=== PATIENT | female | born 1945 | race Caucasian/White ===

== ENCOUNTER 2020-06-02 16:37 | Inpatient (IN) | payer MEDICARE ==
[2020-06-02] MEDS ORDERED: traMADol HCl 50 MG TAB PO PRN (18:27)
[2020-06-02] MEDS ORDERED: Cyclobenzaprine 10 MG TAB PO PRN (18:27)
[2020-06-02] MEDS ORDERED: Morphine 2 MG/ML VIAL SLOW IVP PRN (18:28)
[2020-06-02 18:40] VITALS: BMI 53.1
[2020-06-02] MEDS ORDERED: traMADol HCl 50 MG TAB PO SCH (18:45)
[2020-06-02] MEDS ORDERED: Acetaminophen 500 MG TAB PO SCH (18:45)
[2020-06-02] MEDS ORDERED: Dextrose 50% Abboject 50 ML SYRINGE SLOW IVP PRN (20:13)
[2020-06-02] MEDS ORDERED: Ondansetron PF 4 MG/2 ML Vial IVP PRN (20:13)
[2020-06-02] MEDS ORDERED: Dextrose 5% in Water 1,000 ML IV PRN (20:13)
[2020-06-02] MEDS ORDERED: hydrALAZINE 20 MG/ML VIAL SLOW IVP PRN (20:13)
[2020-06-02] MEDS: Famotidine 20 MG TAB PO SCH (21:50)
[2020-06-02] MEDS: Senokot S 8.6-50 MG TAB PO SCH (21:52)
[2020-06-03] MEDS: Acetaminophen 500 MG TAB PO SCH ×5 (00:10→23:09)
[2020-06-03] MEDS: traMADol HCl 50 MG TAB PO SCH ×5 (00:10→23:10)
--- NOTE | 2020-06-03 00:11 | HP ---
The patient was transferred from [facility]. TRAUMA SURGEON: Dr. Jacobson. CONSULTING PHYSICIAN: Dr. Goldman. HISTORY OF PRESENT ILLNESS: The patient is a 74-year-old female, who presented to the emergency department via EMS after mechanical fall at home. The patient has a history of cerebral palsy and uses a walker to get around. She reports moving around her home before she was able to sit down on her chair in the living room. She fell onto her left side. She reports immediate pain. EMS brought the patient to the hospital and she was found to have a left intertrochanteric femur fracture. She was transferred here as a direct admit from the [facility]. Upon my evaluation, the patient denied numbness and tingling in her bilateral upper and lower extremities, back pain, nausea, vomiting, diarrhea, chest pain, shortness of breath, and cough. She denies loss of consciousness or anticoagulation use. REVIEW OF SYSTEMS: All additional 10-point review of systems negative except as indicated above. PAST MEDICAL HISTORY: Cerebral palsy, hypertension, and hyperlipidemia. PAST SURGICAL HISTORY: Left ankle surgery as a child, cholecystectomy, hysterectomy. SOCIAL HISTORY: The patient reports drinking alcohol on very special occasions. Denies tobacco and drug use. Uses a walker to get around. She lives at home. MEDICATIONS: 1. Lasix. 2. Lisinopril. 3. Metoprolol. 4. Simvastatin. ALLERGIES: NO KNOWN DRUG ALLERGIES. PHYSICAL EXAMINATION: VITAL SIGNS: Temperature 98.1, pulse 56, respirations 20, oxygen saturation 96% on 2 L nasal cannula, blood pressure 126/84. PRIMARY SURVEY: Airway intact. Adequate breath sounds bilaterally. 2+ pulses in bilateral radials, femorals, and DPs. No lacerations, bruising, or external bleeding. SECONDARY SURVEY: HEAD: Normocephalic, atraumatic. No gross palpable skull deformities or tenderness. EYES: Pupils 3 to 2, equal, round, reactive to light bilaterally. ENT: No signs of trauma. C-SPINE: No step-offs or deformities. Nontender. C-collar not in place. CHEST: Nontender. No crepitus. No abrasions or ecchymosis. Equal chest movement. ABDOMEN: Soft, nontender, nondistended. PELVIS: Stable to palpation. Nontender. No abrasions or ecchymosis. RECTAL: Deferred. GENITOURINARY: Deferred. EXTREMITIES: Left lower extremity shortened and slightly rotated in comparison to the right lower extremity. Pulses are intact in the bilateral radials, femorals, and DPs. BACK/SPINE: No step-offs or tenderness or deformity to the thoracic or lumbar spine. No abrasions or ecchymosis noted. NEUROLOGIC: 5/5 strength in bilateral micro lab analyst, plantar flexion, dorsiflexion. Gross normal sensation x4 extremities. LABORATORY FINDINGS: White count 11.5, hemoglobin 14.4, hematocrit 45.7, platelets 237. Sodium 142, potassium 3.7, chloride 105, bicarb 24, BUN 16, creatinine 0.86, glucose 134, total bilirubin 0.7, AST 17, ALT 14, alkaline phosphatase 73. DIAGNOSTIC FINDINGS: X-ray of the left hip demonstrates intertrochanteric fracture. Chest x-ray demonstrates cardiomegaly. ASSESSMENT: 1. Status post mechanical fall from standing. 2. Left intertrochanteric femur fracture. 3. History of hypertension, cerebral palsy, and hyperlipidemia. PLAN: The patient has been admitted to the Trauma Service. She is on the surgical nursing floor. Dr. Goldman plans to take the patient to the OR in the morning. She is n.p.o. at midnight. She will receive both scheduled and p.r.n. pain medication. Repeat blood work in the morning. The patient will likely need placement in acute rehab facility or retirement facility. This patient was discussed with Dr. Jacobson before this dictation. Job ID: [id number]
[2020-06-03 01:31] LABS: SARS-CoV-2 PCR by NAA Not Detected (NotDetected)
[2020-06-03 05:47] LABS: #Eosinphils 0.1 thou/uL (0.0-0.7); #Lymphocytes 1.7 thou/uL (1.20-3.40); #Monocytes 0.6 thou/uL (0.11-0.59); #Neutrophils 6.5 thou/uL (1.40-6.50); %Basophils 0.4 % (0.0-1.0); %Lymphocytes 18.8 % (21.0-51.0); %Monocytes 6.6 % (0.0-10.0); %Neutrophils 73.3 % (42.0-75.0); Hemoglobin 12.5 g/dL (12.0-16.0); INR-International Normal Ratio 1.1; Mean Corpuscular Hemoglobin 26.7 pg (27.0-31.0); Mean Platelet Volume 7.2 fL (7.4-10.4); Platelet Count 233 thou/uL (130-400); Prothrombin Time 14.6 sec (12.0-14.7); RBC Distribution Width 14.1 % (11.5-14.5); Red Blood Cell (RBC) Count 4.68 mill/uL (4.20-5.40); White Blood Cell (WBC) Count 8.9 thou/uL (4.8-10.8)
[2020-06-03 05:48] LABS: PTT 38.4 sec (22.9-36.1)
[2020-06-03 06:05] LABS: Anion Gap 13 mmol/L (10-20); BUN (Urea Nitrogen) 16 mg/dL (9.8-20.1); Calc. Creatinine Clearance 115 mL/min (70-130); Calcium 8.9 mg/dL (7.8-10.44); Carbon Dioxide 27 mmol/L (23-31); Chloride 104 mmol/L (98-107); Glucose 92 mg/dL (83-110); Phosphorus 2.9 mg/dL (2.3-4.7); Potassium 3.6 mmol/L (3.5-5.1); Sodium 140 mmol/L (136-145)
[2020-06-03] MEDS: Famotidine 20 MG TAB PO SCH ×2 (08:27→20:31)
[2020-06-03] MEDS: Senokot S 8.6-50 MG TAB PO SCH ×2 (08:28→20:31)
[2020-06-03] MEDS: Polyethylene Glycol 3350 17 GM Packet PO SCH (08:28)
[2020-06-03] MEDS ORDERED: Glycopyrrolate 0.2 MG/ML 5 ML SYRINGE ONE (08:47)
[2020-06-03] MEDS ORDERED: Rocuronium Bromide 10 MG/ML (10ML VIAL) ONE (08:47)
[2020-06-03] MEDS ORDERED: Dexamethasone 20 MG/5 ML VIAL ONE (08:47)
[2020-06-03] MEDS ORDERED: Bupivacaine HCl 0.5%/Epinephrine 1:200,000/PF 30 ml Vial ONE (08:47)
[2020-06-03] MEDS ORDERED: Ondansetron PF 4 MG/2 ML Vial ONE (08:47)
[2020-06-03] MEDS ORDERED: Ketorolac Tromethamine 30 MG/ML VIAL ONE (08:47)
[2020-06-03] MEDS ORDERED: PROPOFOL 200 MG/20 ML VIAL ONE (08:47)
[2020-06-03] MEDS ORDERED: FLU VACC QS2020-21(65YR UP)/PF 240 MCG/0.7 ML SYRINGE IM ONE (09:00)
[2020-06-03] MEDS ORDERED: Metoprolol Tartrate 50 MG TAB PO SCH (09:00)
[2020-06-03] MEDS: Lisinopril 20 MG TAB PO SCH (09:25)
[2020-06-03] MEDS ORDERED: Midazolam HCl 2 mg/2 ml Vial ONE (12:02)
[2020-06-03] MEDS ORDERED: Fentanyl 100 MCG/2 ML VIAL ONE ×2 (12:02→12:35)
[2020-06-03] MEDS ORDERED: Bupivacaine PF 0.5% 30 ML VIAL ONE (12:02)
[2020-06-03] MEDS ORDERED: EPINEPHrine 1 MG/ML AMP ONE (12:02)
--- NOTE | 2020-06-03 12:25 | CON ---
DATE OF CONSULTATION: 06/03/2020 REQUESTING PHYSICIAN: Dr. Jacobson. CONSULTING PHYSICIAN: Logan Goldman. REASON FOR CONSULTATION: Left hip inter/subtrochanteric fracture. BRIEF CLINICAL HISTORY: She is a 74-year-old female, who was admitted by the Trauma Team after she felt a pop in her left hip resulting in a fall. The son who accompanies the patient states that she was standing and walking and felt her left lower extremity give-way resulting in the patient's fall. Plain radiographs obtained from [facility] demonstrated a three-part inter/subtrochanteric hip fracture. She was transferred to [facility], admitted by the Trauma Team, and our service has been consulted for definitive orthopedic management of this problem. PAST MEDICAL HISTORY: Significant for morbid obesity, chronic in nature; history of cerebral palsy; hypertension; hyperlipidemia. PAST SURGICAL HISTORY: Left ankle surgery, cholecystectomy, hysterectomy. MEDICATIONS: 1. Lasix. 2. Lisinopril. 3. Metoprolol. 4. Simvastatin. ALLERGIES: NO KNOWN DRUG ALLERGIES. DENIES ANY CONTACT ALLERGIES. SOCIAL HISTORY: Denies any ethanol, tobacco, or illicit drug abuse. She uses a walker to get around. Lives at home independently. PHYSICAL EXAMINATION: Morbidly obese female, appearing her stated age, in no apparent distress or discomfort. Visual inspection of the left lower extremity demonstrates her to have shortening and external rotation of the left lower extremity relative to the right. She is neurovascularly intact. IMAGING STUDIES: Two views of left hip demonstrate three-part intertrochanteric hip fracture on the left. IMPRESSION: 1. Left inter/subtrochanteric hip fracture with shortening. 2. Morbid obesity. 3. Hypertension. PLAN: 1. The risks, benefits, options, alternatives, and rationale for proceeding with a left hip open versus closed reduction with internal medullary fixation has been explained in great detail with the patient and her son, who accompanies her. They are ready to proceed. All questions were answered. No guarantee of outcome has been stated or implied. 2. Please see orders. Job ID: [id number]
[2020-06-03] MEDS: Metoprolol Tartrate 25 MG TAB PO SCH ×4 (12:40→23:16)
[2020-06-03] MEDS ORDERED: SUGAMMADEX SODIUM 200 MG/2 ML VIAL ONE (14:01)
[2020-06-03] MEDS ORDERED: Promethazine HCl 25 MG/ML VIAL SLOW IVP PRN (14:37)
[2020-06-03] MEDS ORDERED: Promethazine HCl 25 MG/ML VIAL IM PRN (14:37)
[2020-06-03] MEDS ORDERED: Ondansetron HCl/PF 4 MG/2 ML Vial IVP PRN (14:37)
--- NOTE | 2020-06-03 15:06 | RAD ---
Exam: XR Hip Lt 2-3 View HISTORY: ORIF left hip. COMPARISON: 06/02/2020 FINDINGS/IMPRESSION: 5 intraoperative fluoroscopic images of the left femur are submitted for interpretation. Images demon strate an antegrade intramedullary marissa with dynamic compression type screw as well as distal interlocking screw. Distal portion of the intramedullary marissa extends to the femoral metaphysis distal ly. No hardware complication is seen. There is improvement in alignment of the intertrochanteric left hip fracture. Correlation with intraoperative findings is recommended. Fluoroscopy: Time-75.1 seconds Dose-17.02 mGy
--- NOTE | 2020-06-03 15:16 | PRG ---
DATE OF SERVICE: 06/03/2020 SUBJECTIVE: The patient was seen during morning rounds, awake, alert, in no distress. The patient has been n.p.o. since midnight. The patient is headed to the OR currently for repair of her left intertrochanteric femur fracture. The patient's heart rate has been running in the 50s. OBJECTIVE: VITAL SIGNS: Temperature 97.5, pulse 54, respirations 12, SpO2 of 94% on 2 L nasal cannula, blood pressure 174/91. GENERAL: Elderly female, awake, alert, in no distress. HEENT: Unremarkable. RESPIRATORY: Good inspiratory and expiratory effort, respirations are even and nonlabored. CARDIAC: Mildly bradycardic. EXTREMITIES: Left lower extremity shortened and slightly rotated externally. LABORATORY DATA: WBC 8.9, RBC 4.68, hemoglobin 12.5, hematocrit 37.9, platelets 233. Sodium 140, potassium 3.6, chloride 104, BUN 16, creatinine 0.92, estimated GFR 60, glucose 92, phosphorus 2.9, magnesium 2.0. ASSESSMENT: 1. Status post mechanical fall from standing. 2. Left intertrochanteric femur fracture. 3. History of hypertension, cerebral palsy, and hyperlipidemia. PLAN: Orthopedic Surgery has taken the patient to the OR this morning for repair of her intertrochanteric femur fracture. The patient will be on a heart healthy diet postop. PT and OT to evaluate and treat postop. Pain control. A rehab screen has been placed. We will change the patient's metoprolol to q.6 hours 12.5 mg with hold parameters since shes been bradycardic. Job ID: [id number] [facility]
[2020-06-03] MEDS: CEFAZOLIN 2 GM in Premix Bag 1 BAG IVPB SCH (20:31)
--- NOTE | 2020-06-03 23:50 | PRG ---
DATE OF SERVICE: 06/03/2020 SUBJECTIVE: The patient was seen this evening during rounds. She was awake and alert with no signs of acute distress. She reported that her pain was well controlled. She is postoperative day 0, status post fixation of the left intertrochanteric femur fracture. She is tolerating her diet, has not worked with Physical Therapy yet. OBJECTIVE: VITAL SIGNS: Temperature 97.7, pulse 58, respirations 16, oxygen saturation 97% on room air, and blood pressure 154/88. ASSESSMENT: 1. Status post mechanical fall from standing. 2. Left intertrochanteric femur fracture, status post repair. 3. History of hypertension, cerebral palsy, and hyperlipidemia. PLAN: Continue current diet and pain regimen. Continue physical and occupational therapy. Continue to monitor patient's pulse as it has been low during her time here, but appears asymptomatic. Metoprolol has been ordered q.6 hours but with hold parameters. The patient is pending discharge to acute rehab facility. Job ID: [id number]
[2020-06-04] MEDS: CEFAZOLIN 2 GM in Premix Bag 1 BAG IVPB SCH (05:00)
[2020-06-04] MEDS: traMADol HCl 50 MG TAB PO SCH ×4 (05:01→23:28)
[2020-06-04] MEDS: Acetaminophen 500 MG TAB PO SCH ×4 (05:01→23:28)
[2020-06-04] MEDS: Metoprolol Tartrate 25 MG TAB PO SCH ×4 (05:36→23:29)
[2020-06-04 05:46] LABS: #Lymphocytes 0.9 thou/uL (1.20-3.40); #Monocytes 0.4 thou/uL (0.11-0.59); #Neutrophils 9.2 thou/uL (1.40-6.50); %Eosinophils 0.3 % (0.0-10.0); %Lymphocytes 8.6 % (21.0-51.0); %Neutrophils 87.1 % (42.0-75.0); Hemoglobin 12.1 g/dL (12.0-16.0); Mean Corpuscular HGB CONC 32.9 g/dL (32.0-36.0); Mean Corpuscular Hemoglobin 26.4 pg (27.0-31.0); Mean Corpuscular Volume 80.3 fL (78.0-98.0); Mean Platelet Volume 7.3 fL (7.4-10.4); Platelet Count 220 thou/uL (130-400); Red Blood Cell (RBC) Count 4.57 mill/uL (4.20-5.40); White Blood Cell (WBC) Count 10.6 thou/uL (4.8-10.8)
[2020-06-04 06:04] LABS: Anion Gap 15 mmol/L (10-20); BUN (Urea Nitrogen) 15 mg/dL (9.8-20.1); Calc. Creatinine Clearance 94 mL/min (70-130); Calcium 8.7 mg/dL (7.8-10.44); Carbon Dioxide 27 mmol/L (23-31); Glucose 139 mg/dL (83-110); Magnesium 2.1 mg/dL (1.6-2.6); Phosphorus 3.3 mg/dL (2.3-4.7); Potassium 4.2 mmol/L (3.5-5.1)
[2020-06-04 06:06] LABS: Chloride 103 mmol/L (98-107); Sodium 141 mmol/L (136-145)
[2020-06-04] MEDS: Famotidine 20 MG TAB PO SCH (08:04)
[2020-06-04] MEDS: Senokot S 8.6-50 MG TAB PO SCH ×2 (08:04→21:14)
[2020-06-04] MEDS: Lisinopril 20 MG TAB PO SCH (08:05)
[2020-06-04] MEDS: Polyethylene Glycol 3350 17 GM Packet PO SCH (08:06)
--- NOTE | 2020-06-04 09:08 | OP ---
DATE OF PROCEDURE: 06/03/2020 PREOPERATIVE DIAGNOSIS: Left intertrochanteric/subtrochanteric femur fracture. POSTOPERATIVE DIAGNOSIS: Left intertrochanteric/subtrochanteric femur fracture. PROCEDURE PERFORMED: TFN, left femur. ANESTHESIA: General. INCISING MACHINE OPERATOR: Fernando. IMPLANT: Synthes TFN nail 11 x 360 mm with 90 mm hip screw and a single distal cross-lock screw. COMPLICATIONS: None. ESTIMATED BLOOD LOSS: 100 mL. DRAINS: None. SPECIMEN: None. OUTCOME: Satisfactory. INDICATIONS FOR PROCEDURE: The patient is a 74-year-old lady, status post ground level fall, sustaining a left intertrochanteric femur fracture with a large spike extending off the lesser trochanter into the subtroch region. After discussion with the patient as well as her family including risks and benefits, we decided to proceed with intramedullary nail stabilization with a hip screw for this fracture. Informed consent has been obtained. I believe all questions had been answered. DESCRIPTION OF PROCEDURE: The patient was brought to the operating room and a time-out performed followed by induction of general anesthesia. Next, the patient was positioned in supine on the fracture table with the injured extremity, held in longitudinal traction and neutral rotation. Next, a sterile prep and drape was performed of the left lateral thigh. An incision was made proximal to the tip of the greater trochanter, and after skin was sharply incised, dissection was carried down bluntly, such that the tip of the greater trochanter could be palpated. Next, a threaded guidewire was passed from the tip of the greater trochanter into the proximal femoral canal. This was followed by the opening reamer. Next, a ball-tipped guidewire was passed through this aperture into the intramedullary canal and down to the level of the distal femoral metaphysis. Reaming was then started at 8.5 mm and continued up to 12 mm with good chatter at the isthmus. Next, an 11 x 360 mm nail was passed over the ball-tipped guidewire under C-arm guidance. This was performed while my supply assistant provided reduction of the fracture and stabilization of the thigh while the intramedullary nail was inserted. Once inserted, my supply assistant provided further stability of the nail while the outrigger jig was placed and a second incision was made distal to the first for the hip screw placement. Once jig was appropriately positioned, a threaded guidewire was passed through the lateral cortex of the femur up the femoral neck into the femoral head. Measurement off this guidewire was then used to determine the length of the reamer as well as the hip screw itself. The step reamer was then passed over the guidewire and then the hip screw inserted over the guidewire under C-arm guidance. Once appropriately positioned, the locking mechanism was engaged and backed off a half turn to allow for compression of the intertrochanteric portion of the fracture. Next, while my supply assistant continued to apply force to the femur with stabilization, a single distal cross-lock screw was applied in freehand technique through a third small incision. Once completed, final AP and lateral C-arm images were obtained of the femur after removal of the proximal jig. The proximal most incision was irrigated with bulb syringe, then closed in layers with 0 Vicryl deep, followed by 2-0 Vicryl and danna. Danna were used for the other two small incisions. Xeroform gauze and tape dressing were then applied to the thigh, and the patient was transferred to recovery room in stable condition. There were no complications. The patient tolerated the procedure well. Job ID: [id number]
[2020-06-04] MEDS: Furosemide 20 MG TAB PO SCH (09:46)
[2020-06-04] MEDS: FLUoxetine HCl 10 MG CAP PO SCH (09:46)
--- NOTE | 2020-06-04 12:59 | PRG ---
DATE OF SERVICE: 06/04/2020 SUBJECTIVE: The patient is currently on the surgical floor. She is postop day 1, status post TFN nail placement after suffering a ground level fall and having a left intertrochanteric femur fracture. She tolerated that procedure well. Overnight, she had no issues. She is awaiting evaluation by Physical and Occupational Therapy and then discuss placement most likely inpatient rehab. She is tolerating a diet. Her pain is controlled. OBJECTIVE: VITAL SIGNS: Temperature is 97.8, heart rate 64, blood pressure 153/80, respirations 14, oxygen saturation is 93% on room air. GENERAL: The patient is resting comfortably in bed. She is awake and appropriate. HEENT: Unremarkable. LUNGS: Clear to auscultation bilaterally. HEART: Slightly bradycardic. EXTREMITIES: Neurovascularly intact x4. Postop dressing is clean, dry, and intact. LABORATORY FINDINGS: White blood cell count 10.6, hemoglobin 12.1, hematocrit 36.7, platelets 220. Sodium 141, potassium 4.2, chloride 103, CO2 of 27, BUN 15, creatinine 1.13, glucose 139, magnesium 2.1, phosphorus 3.3. RADIOGRAPHS: There are no radiographs reviewed this morning. ASSESSMENT AND PLAN: 1. Status post ground level fall. 2. TFN placement for left intertrochanteric femur fracture. 3. History of hypertension, cerebral palsy, and hyperlipidemia. Plan will be to continue supportive care, encourage physical and occupational therapy and await placement decision. The patient has to hold parameters on her blood pressure medicines, specifically her metoprolol. The patient was evaluated this morning with Dr. Saxena during rounds. Job ID: [id number]
[2020-06-05] MEDS: Acetaminophen 500 MG TAB PO SCH ×5 (05:04→23:00)
[2020-06-05] MEDS: Metoprolol Tartrate 25 MG TAB PO SCH ×5 (05:05→23:02)
[2020-06-05] MEDS: traMADol HCl 50 MG TAB PO SCH ×5 (05:05→23:01)
[2020-06-05] MEDS: Furosemide 20 MG TAB PO SCH (08:47)
[2020-06-05] MEDS: Lisinopril 20 MG TAB PO SCH (08:47)
[2020-06-05] MEDS: FLUoxetine HCl 10 MG CAP PO SCH (08:47)
[2020-06-05] MEDS: Enoxaparin Sodium 40 MG/0.4 ML SYRINGE SC SCH (08:47)
[2020-06-05] MEDS: Senokot S 8.6-50 MG TAB PO SCH ×2 (08:48→21:11)
[2020-06-05] MEDS: Polyethylene Glycol 3350 17 GM Packet PO SCH (08:48)
--- NOTE | 2020-06-05 08:54 | PRG ---
DATE OF SERVICE: 06/05/2020 SUBJECTIVE: Coleen is a 74-year-old female, postop day 3 from a left long trochanteric nail fixation of the three-part intertrochanteric/subtrochanteric hip fracture. She has not walked yet, but she sat up and I believe therapy at this point. Her pain is controlled. OBJECTIVE: VITAL SIGNS: Temperature 97.6, pulse 55, respiratory rate 18, blood pressure 145/81. GENERAL: She is alert and oriented to person, place, time, situation, responsive, appropriate with examiner. SKIN: Incision is clean. No strike through. No erythema. No malrotation or shortening of the left lower extremity. LABORATORY DATA: Hemoglobin and hematocrit 12.6 and 36.7. IMPRESSION: 74-year-old female, postop day 3 left three-part intertrochanteric/subtrochanteric hip fracture, treated with a long TFN. PLAN: Continue current care. DISPOSITION: Per Trauma Team. Job ID: [id number]
[2020-06-05 09:24] LABS: Anion Gap 12 mmol/L (10-20); BUN (Urea Nitrogen) 16 mg/dL (9.8-20.1); Calc. Creatinine Clearance 120 mL/min (70-130); Calcium 8.6 mg/dL (7.8-10.44); Carbon Dioxide 30 mmol/L (23-31); Chloride 102 mmol/L (98-107); Glucose 87 mg/dL (83-110); Magnesium 2.2 mg/dL (1.6-2.6); Potassium 3.7 mmol/L (3.5-5.1); Sodium 140 mmol/L (136-145)
[2020-06-05 09:25] LABS: Phosphorus 2.4 mg/dL (2.3-4.7)
--- NOTE | 2020-06-05 12:49 | PRG ---
DATE OF SERVICE: SUBJECTIVE: The patient remains on the surgical floor. She is postop day 2 status post TFN nail placement for a left intertrochanteric femur fracture. She did well overnight. She had no issues. She is tolerating a diet. She has begun working with Physical and Occupational therapy. She reports her pain is controlled for the most part and we have made adjustments to this. PHYSICAL EXAMINATION: VITAL SIGNS: Temperature is 97.6, heart rate 66, blood pressure 145/81, respirations 18, oxygen saturation 94% on 1 L of nasal cannula. GENERAL: The patient is resting comfortably in bed. She is awake, alert, appropriate. HEENT: Unremarkable. LUNGS: Clear to auscultation bilaterally. HEART: Regular rate and rhythm. EXTREMITIES: Neurovascularly intact x4. LABORATORY FINDINGS: Sodium 140, potassium 3.7, chloride 102, CO2 of 30, BUN 16, creatinine 0.66, glucose 87, magnesium 2.2, phosphorus 2.4. RADIOGRAPHIC STUDIES: There are no radiographs to review this morning. ASSESSMENT: 1. Status post ground level fall, hospital day 3. 2. Postop day 2, status post TFN nail placement for left intertrochanteric femur fracture. 3. History of hypertension, cerebral palsy, hyperlipidemia. PLAN: Plan will be to continue supportive care. We will begin chemical VTE prophylaxis with Lovenox. Continue to encourage physical and occupational therapy and await final placement decision. Currently, the Case Management team is working on placement to [facility]. The patient was seen this morning with Dr. Saxena during rounds. Job ID: [id number]
[2020-06-06] MEDS: Acetaminophen 500 MG TAB PO SCH ×4 (05:13→23:04)
[2020-06-06] MEDS: traMADol HCl 50 MG TAB PO SCH ×4 (05:13→23:05)
[2020-06-06] MEDS: Metoprolol Tartrate 25 MG TAB PO SCH ×4 (05:14→23:04)
--- NOTE | 2020-06-06 08:32 | PRG ---
DATE OF SERVICE: 06/06/2020 SUBJECTIVE: Coleen is a 74-year-old female, postop day 3 for left hip long trochanteric nail fixation for inter/subtrochanteric fixation. I believe she is scheduled to be transferred to swing bed either today or tomorrow. OBJECTIVE: VITAL SIGNS: Temperature 98.2 pulse 53, respiratory rate 16 and unlabored, blood pressure 145/83. GENERAL: She is alert and oriented to person, place, time, and situation, responsive and appropriate to examiner, conversive and polite. Incision is clean. No strike through. No erythema. No malrotation or shortening of left lower extremity. Therapy notes reflect that she still sits at the bedside. She has not ambulated yet. LABORATORY DATA: Hemoglobin and hematocrit stable at 12.1 and 36.7. IMPRESSION: 1. A 74-year-old female, postop day 3 left hip intertrochanteric fracture fixation with long trochanter nail fixation. 2. Morbid obesity, difficulty with independence in activities of daily living. PLAN: Continue current care. Disposition per Trauma Team. Remove danna at postop day 14 to 16. Job ID: [id number]
[2020-06-06] MEDS: Enoxaparin Sodium 40 MG/0.4 ML SYRINGE SC SCH ×2 (08:59→09:01)
[2020-06-06] MEDS ORDERED: FLUoxetine HCl 10 MG CAP PO SCH (09:00)
[2020-06-06] MEDS: Furosemide 20 MG TAB PO SCH (09:02)
[2020-06-06] MEDS: Lisinopril 20 MG TAB PO SCH (09:02)
[2020-06-06] MEDS: Senokot S 8.6-50 MG TAB PO SCH ×2 (09:02→20:51)
[2020-06-06] MEDS: Polyethylene Glycol 3350 17 GM Packet PO SCH (09:21)
[2020-06-07] MEDS: Acetaminophen 500 MG TAB PO SCH ×3 (05:20→17:13)
[2020-06-07] MEDS: traMADol HCl 50 MG TAB PO SCH ×3 (05:21→17:13)
[2020-06-07] MEDS: Metoprolol Tartrate 25 MG TAB PO SCH ×3 (05:22→17:15)
[2020-06-07] MEDS: Furosemide 20 MG TAB PO SCH (09:31)
[2020-06-07] MEDS: Enoxaparin Sodium 40 MG/0.4 ML SYRINGE SC SCH ×2 (09:31→09:32)
[2020-06-07] MEDS: Lisinopril 20 MG TAB PO SCH (09:31)
[2020-06-07] MEDS: Senokot S 8.6-50 MG TAB PO SCH (09:32)
[2020-06-07] MEDS: Polyethylene Glycol 3350 17 GM Packet PO SCH (09:32)
--- NOTE | 2020-06-07 12:58 | DIS ---
DATE OF ADMISSION: 06/02/2020 DATE OF DISCHARGE: 06/07/2020 ADMITTING PHYSICIAN: John Jacobson MD CONSULTING PHYSICIANS: 1. Xavier Saxena DO. 2. Logan Goldman MD. ADMITTING DIAGNOSES: 1. Mechanical fall from standing. 2. Left intertrochanteric femur fracture. 3. History of hypertension, cerebral palsy, and hyperlipidemia. DISCHARGE DIAGNOSES: 1. Mechanical fall from standing. 2. Left intertrochanteric femur fracture. 3. History of hypertension, cerebral palsy, and hyperlipidemia. 4. Status post open reduction and internal fixation of the left hip fracture. DISCHARGING MEDICATIONS: 1. Tylenol 1 g every 6 hours as needed. 2. Enoxaparin 40 mg daily. 3. Lasix 20 mg daily. 4. Lisinopril 20 mg daily. 5. Metoprolol 12.5 mg every 6 hours as needed. 6. Tramadol 100 mg every 6 hours as needed. 7. Bowel regimen as needed. HOSPITAL COURSE: The patient was admitted through the emergency department status post fall, found to have a left intertrochanteric femur fracture. She was cleared for surgery. Orthopedics was consulted. The patient was taken to the OR and had ORIF of the same. She had an uneventful hospital course. She has been accepted to the rehab, today is hospital day #5. The patient is tolerating diet. Pain is controlled. She is getting about . States she is ready for the rehab. She is tolerating diet, passing gas. Her Rice has been removed. Follow up will be with Orthopedics in two weeks. She will follow up in trauma clinic as needed. DISCHARGE PLAN: To [facility]. PHYSICAL EXAMINATION: VITAL SIGNS: Today vital signs; temperature is 98.1, blood pressure 157/75, heart rate is 59, and respiratory rate is 16. She is 92% on room air. GENERAL: A 74-year-old obese female, sitting up in no acute distress. HEENT: Normocephalic and atraumatic. Trachea is midline. RESPIRATORY: Equal rise and fall of her breath sounds. Clear to auscultation in upper and lower lobes bilaterally. CARDIOVASCULAR: Regular rate and rhythm. ABDOMEN: Obese, soft. MUSCULOSKELETAL: She has good sensation in all extremities. LABORATORY DATA: There is no laboratory data to review today. Job ID: [id number]
[2020-06-07 16:42] VITALS: BP 144/82; TEMP 98.3
== END 2020-06-07 17:39 | DRG 481 ==
LOC: SURG A 18:17
PROVIDERS: ADMIT Surgery; ATTEND Surgery
PROC: 0QS706Z Reposition Left Upper Femur with Intramedullary Internal Fixation Device, Open Approach (ICD-10-PCS; principal; 2020-06-03)
PROC: 8E0YXBZ Computer Assisted Procedure of Lower Extremity (ICD-10-PCS; 2020-06-03)
DX: S72.142A Displaced intertrochanteric fracture of left femur, initial encounter for closed fracture (principal); Z20.822 Contact with and (suspected) exposure to COVID-19; W18.30XA Fall on same level, unspecified, initial encounter; G80.9 Cerebral palsy, unspecified; S72.22XA Displaced subtrochanteric fracture of left femur, initial encounter for closed fracture; E66.01 Morbid (severe) obesity due to excess calories; I10 Essential (primary) hypertension; E78.5 Hyperlipidemia, unspecified; Z68.43 Body mass index [BMI] 50.0-59.9, adult; Y92.009 Unspecified place in unspecified non-institutional (private) residence as the place of occurrence of the external cause; Z90.49 Acquired absence of other specified parts of digestive tract; Z90.710 Acquired absence of both cervix and uterus; Z79.899 Other long term (current) drug therapy
CPT/HCPCS: 36415; 76000; 80048; 83735; 84100; 85025; 85610; 85730; 86850; 86900; 86901; 87635; C1713; J0171; J0690; J1100; J1650; J1885; J2250; J2270; J2405; J2704; J3010; J7030; S0020; U0003; U0005

== ENCOUNTER 2020-07-15 09:51 | Outpatient (CLI) | payer MEDICARE ==
--- NOTE | 2020-07-15 12:54 | RAD ---
LEFT FEMUR 4 VIEWS: HISTORY: Femur pain. FINDINGS: Intramedullary marissa in the left femur. IMPRESSION: Screw transfixes the femoral neck. Prominent degenerative changes at the hip joint. Intratrochanter ic fracture line is noted. Fragments show adequate position. Degenerative changes at the knee. IMPRESSION: Postoperative changes left hip. Degenerative changes left hip and left knee. No evidence of acute c hange from the [id number] films of 06/03/2020. POS: [facility]
== END 2020-07-15 09:52 | disposition home or self-care (01) ==
LOC: RAD 09:51
PROVIDERS: ATTEND Orthopaedic Surgery
DX: M89.8X5 Other specified disorders of bone, thigh (principal); M16.12 Unilateral primary osteoarthritis, left hip; M17.12 Unilateral primary osteoarthritis, left knee; Z98.890 Other specified postprocedural states